=== PATIENT | female | born 1955 | race Caucasian/White ===

== ENCOUNTER 2017-03-24 19:31 | Emergency (ER) | payer OTHER ==
[2017-03-24] MEDS ORDERED: ACETAMINOPHEN 325 MG TABLET (FP) PO ONE (19:39)
--- NOTE | 2017-03-24 19:40 | PDOC ---
Rapid Medical Evaluation Time Seen by Provider: 03/24/17 19:36 Medical Evaluation: Allergies Allergy/AdvReac Type Severity Reaction Status Date / Time No Known Drug Allergies Allergy Verified 01/06/12 08:41 I have performed a brief in-person evaluation of this patient. The patient presents with a chief complaint of: body aches and fever since monday; patient had the flu shot this year Pertinent physical exam findings: none I have ordered the following: PO tylenol The patient will proceed to the ED for further evaluation.
[2017-03-24 19:50] VITALS: BP 147/71; PULSE 109; TEMP 100.7; BMI 34.1
--- NOTE | 2017-03-24 22:33 | PDOC ---
History of Present Illness - General Chief Complaint: Cold Symptoms Stated Complaint: FEVER Time Seen by Provider: 03/24/17 19:36 - History of Present Illness Initial Comments: 03/24/17 23:11 The patient is a 61 year old female who presents for evaluation of fevers, nausea, vomiting, body aches recently diagnosed with the flu. The patient reports that she has been having a 2 day history of fevers, body aches with associated nausea and vomiting. She presented to an urgent care today and was tested positive for the flu and prescribed tamiflu. The patient reports continued symptoms since her urgent care visit prompting her presentation to the ED for evaluation. She denies SOB, chest pain, abdominal pain, or changes with urination or bowel movements. Past History - Past Medical History Allergies/Adverse Reactions: Allergies Allergy/AdvReac Type Severity Reaction Status Date / Time No Known Drug Allergies Allergy Verified 03/24/17 19:59 Home Medications: Ambulatory Orders Cholecalciferol (Vitamin D3) [Vitamin D3 -] 1,000 unit PO DAILY 01/05/12 Exenatide [Byetta] 5 mcg SQ BID 01/05/12 Glipizide 5 mg PO HS 01/05/12 Glipizide [Glipizide ER] 10 mg PO DAILY 01/05/12 Linagliptin [Tradjenta] 5 mg PO DAILY 01/05/12 Simvastatin [Zocor -] 20 mg PO HS 01/05/12 Valsartan [Diovan] 80 mg PO DAILY 01/05/12 metFORMIN HCL [Glucophage] 1,000 mg PO BID 01/05/12 Ondansetron HCl [Zofran] 4 mg PO TID PRN #21 tablet 03/24/17 Anemia: No Asthma: No Cancer: No Cardiac Disorders: No CVA: No COPD: No CHF: No Dementia: No (NIDDM) Diabetes: Yes GI Disorders: No Disorders: No HTN: Yes Hypercholesterolemia: Yes Liver Disease: No Seizures: No Thyroid Disease: No - Surgical History Abdominal Surgery: No Appendectomy: No Cardiac Surgery: No Cholecystectomy: No Lung Surgery: No Neurologic Surgery: No Orthopedic Surgery: No - Suicide/Smoking/Psychosocial Hx Smoking History: Never smoked Hx Alcohol Use: No Drug/Substance Use Hx: No Substance Use Type: None Hx Substance Use Treatment: No Review of Systems - Review of Systems Comments:: 03/24/17 23:14 Constitutional: Fevers, fatigue, body aches. No chills HEENT: Nasal congestion, No Rhinorrhea, visual changes Cardiovascular: No chest pain, syncope, palpitations, lightheadedness Respiratory: No Cough, SOB, Hemoptysis, Gastrointestinal: Nausea, vomiting. No Abdominal pain, Constipation, Diarrhea, Melena Genitourinary: No Dysuria, Frequency, Urgency, Hesitancy, Hematuria, Flank pain Musculoskeletal: No Myalgia, arthralgia Skin: No rashes, itching, bruising, pallor Neurologic: No Headache, Dizziness, Numbness, Weakness, or Tingling Psychiatric: No Hallucinations. No SI or HI *Physical Exam - Vital Signs Last Vital Signs Temp Pulse Resp BP Pulse Ox 100.7 F H 109 H 20 147/71 97 03/24/17 19:48 03/24/17 19:48 03/24/17 19:48 03/24/17 19:48 03/24/17 19:48 - Physical Exam Comments: 03/24/17 23:16 General Appearance: Nourished. No Apparent Distress HEENT: EOMI, JULIAN. No Pharyngeal Erythema, Tonsillar Exudate, Tonsillar Erythema Neck: No Cervical Lymphadenopathy Respiratory/Chest: Lungs Clear, Normal Breath Sounds. No Crackles, Rales, Rhonchi, Wheezing Cardiovascular: Regular Rhythm, Regular Rate. No Murmur, Gallops, Rubs Gastrointestinal/Abdominal: Normal Bowel Sounds, Soft. No Guarding, Rebound, Tenderness Musculoskeletal: No CVA Tenderness Extremity: Normal Capillary Refill Integumentary: Normal Color, Dry, Warm Neurologic: Fully Oriented, Alert, Normal Mood/Affect, Normal Response, ED Treatment Course - LABORATORY CBC & Chemistry Diagram: 03/24/17 23:05 03/24/17 23:05 - Medications Given in the ED: ED Medications Discontinued Medications Generic Name Dose Route Start Last Admin Trade Name Freq PRN Reason Stop Dose Admin Acetaminophen 650 mg 03/24/17 19:39 03/24/17 19:45 Tylenol - PO 03/24/17 19:40 650 mg ONCE ONE Administration Medical Decision Making - Medical Decision Making 03/24/17 23:16 The patient is a 61 year old female who presents for evaluation of fevers, nausea, vomiting, body aches recently diagnosed with the flu. Given the patient 's recent positive influenza test and continued symptoms, it is likely her current symptoms are due to influenza. We will obtain a cbc, cmp to evaluate for other etiologies and treat the patient with iv fluids, zofran, and ibuprofen here in the ED. We will continue to monitor and reassess. 03/24/17 23:52 CBC, cmp are unremarkable. The patient reports significant improvement in her symptoms. We are comfortable discharging the patient home at this time with primary care provider follow up. The patient is already taking tamiflu. We discussed the results and the plan with the patient who voiced understanding and is agreeable with the plan. *DC/Admit/Observation/Transfer Diagnosis at time of Disposition: Influenza - Discharge Dispostion Disposition: HOME Condition at time of disposition: Improved Admit: No - Prescriptions Prescriptions: Ondansetron HCl [Zofran] 4 mg PO TID PRN #21 tablet PRN Reason: Nausea - Referrals Referrals: Odalys Gastelum MD [Primary Care Provider] - - Patient Instructions Printed Discharge Instructions: DI for Influenza -- Adult Additional Instructions: Please return to the ER if you experience concerning or worsening symptoms including worsening pain, fevers, or vomiting. Your symptoms are likely due to the flu. Please continue to take the medication you were prescribed at the urgent care. Please continue to use tylenol and ibuprofen as needed to manage your fevers at home and continue to stay well hydrated. We have sent a prescription for anti-nausea medication to your pharmacy that you should take as needed. Please call to schedule a follow up appointment with your primary care provider within 3-4 days to discuss your ER visit. - Post Discharge Activity
[2017-03-24] MEDS ORDERED: IBUPROFEN 600 MG TABLET (FP) PO ONE ×2 (22:37→22:52)
[2017-03-24] MEDS ORDERED: ONDANSETRON 4 MG/2 ML VIAL IVPUSH ONE (22:37)
[2017-03-24] MEDS ORDERED: SODIUM CHLORIDE 1,000 ML IV STA (22:37)
[2017-03-24] MEDS ORDERED: ONDANSETRON 4 MG/2 ML VIAL ONE (22:52)
[2017-03-24 23:13] LABS: BASO % 0.9 % (0-2.0); EOS % 0.2 % (0-4.5); HEMATOCRIT 39.4 % (32.4-45.2); HEMOGLOBIN 13.1 GM/dL (10.7-15.3); LYMPH % 21.5 % (8-40); MCH 28.5 pg (25.7-33.7); MCHC 33.1 g/dl (32.0-36.0); MEAN CELL VOLUME 86.2 fl (80-96); MEAN PLT VOLUME 8.9 fl (7.5-11.1); MONO % 8.7 % (3.8-10.2); NEUT % 68.7 % (42.8-82.8); PLATELET COUNT 180 K/MM3 (134-434); RBC 4.57 M/mm3 (3.60-5.2); WHITE BLOOD COUNT 6.9 K/mm3 (4.0-10.0)
--- NOTE | 2017-03-24 23:34 | PDOC ---
Attending Attestation - Resident Resident Name: John Jha - ED Attending Attestation I have performed the following: I have examined & evaluated the patient, The case was reviewed & discussed with the resident, I agree w/resident's findings & plan, Exceptions are as noted - HPI HPI: 03/25/17 00:23 The patient is a 61 year old female, with a significant past medical history of diabetes, HTN and HLD, who presents to the emergency department with fever, runny nose, non productive cough and body aches for the past 2 days. She states that she received the flu shot this year. She notes that she went to urgent care earlier today and was diagnosed with influenza (shows us the results on her phone), given tamiflu and sent home. One hour after discharge from urgent care, pt developed a fever to 100.4 and presented to the ED for further evaluation. The patient denies chest pain, shortness of breath, headache and dizziness. Denies chills, nausea, vomit, diarrhea and constipation. Denies dysuria, frequency, urgency and hematuria. Allergies: None Past surgical history: None reported Social history: No alcohol, tobacco or drug use reported - Physicial Exam PE: 03/25/17 00:23 "GENERAL: Awake, alert, and fully oriented, in no acute distress HEAD: No signs of trauma EYES: PERRLA, EOMI, sclera anicteric, conjunctiva clear ENT: Auricles normal inspection, hearing grossly normal, nares patent, oropharynx clear without exudates. Moist mucosa NECK: Normal ROM, supple, no lymphadenopathy, JVD, or masses LUNGS: Breath sounds equal, clear to auscultation bilaterally. No wheezes, and no crackles HEART: Regular rate and rhythm, normal S1 and S2, no murmurs, rubs or gallops ABDOMEN: Soft, nontender, normoactive bowel sounds. No guarding, no rebound. No masses EXTREMITIES: Normal range of motion, no edema. No clubbing or cyanosis. No cords, erythema, or tenderness BACK: No midline spinal tenderness in cervical/thoracic/lumbar region NEUROLOGICAL: Normal speech, cranial nerves intact, negative pronator drift, 5/ 5 strength in all 4 extremities, normal sensation to light touch in all 4 extremities, normal cerebellar exam, normal gait, normal reflexes and tone SKIN: Warm, Dry, normal turgor, no rashes or lesions noted. " - Medical Decision Making 03/24/17 23:02 61-year-old female, diagnosed with influenza at urgent care today presents to emergency department with a fever. Vitals remarkable for fever to 100.7 and tachycardia at 109. Exam is unremarkable. Flu is likely secondary to flu diagnosis, patients already on Tamiflu, will treat fever, get basic labs and reassess. Discussed with patient that she will likely have recurrent fevers for the next few days and to treat with Tylenol and Motrin as needed. 03/25/17 00:23 Rpt vitals with temp down to 99, HR 92. Pt feels better after ibuprofen and IVF , return precautions provided. I discussed the physical exam findings, ancillary test results and final diagnoses with the patient. I answered all of the patient's questions. The patient was satisfied with the care received and felt comfortable with the discharge plan and treatment plan. The patient will call their primary care physician within 24 hours to arrange follow-up and will return to the Emergency Department with any new, persistent or worsening symptoms.
[2017-03-24 23:46] LABS: ALBUMIN 3.8 g/dl (3.4-5.0); ALK PHOS 81 U/L (45-117); ANION GAP 7 (8-16); BILIRUBIN,TOTAL 0.5 mg/dL (0.2-1.0); BLOOD UREA NITROGEN 13 mg/dL (7-18); CALCIUM 8.9 mg/dL (8.5-10.1); CHLORIDE 101 mmol/L (98-107); CO2 28 mmol/L (21-32); CREATININE 0.7 mg/dL (0.55-1.02); GLUCOSE,RANDOM 146 mg/dL (74-106); POTASSIUM 4.5 mmol/L (3.5-5.1); SGOT/AST 73 U/L (15-37); SGPT/ALT 83 U/L (12-78); SODIUM 136 mmol/L (136-145); TOT PROT 7.4 g/dl (6.4-8.2)
== END 2017-03-25 00:41 | disposition home or self-care (01) ==
LOC: JER 19:31
PROC: 3E0337Z Introduction of Electrolytic and Water Balance Substance into Peripheral Vein, Percutaneous Approach (ICD-10-PCS; principal; 2017-03-24)
PROC: 3E033GC Introduction of Other Therapeutic Substance into Peripheral Vein, Percutaneous Approach (ICD-10-PCS; 2017-03-24)
DX: J11.1 Influenza due to unidentified influenza virus with other respiratory manifestations (principal); E11.9 Type 2 diabetes mellitus without complications; Z79.84 Long term (current) use of oral hypoglycemic drugs; E78.00 Pure hypercholesterolemia, unspecified; I10 Essential (primary) hypertension
CPT/HCPCS: 36415; 80053; 85025; 96361; 96375; 99281-25